=== PATIENT | male | born 1970 ===

== ENCOUNTER 2016-06-16 16:16 | Outpatient (CLI) | payer BC | END 2016-06-16 16:17 | disposition home or self-care (01) | LOC: LABHHL 16:16 | PROVIDERS: ATTEND Internal Medicine Gastroenterology | DX: K30 Functional dyspepsia (principal); R63.4 Abnormal weight loss; R11.2 Nausea with vomiting, unspecified; R85.89 Other abnormal findings in specimens from digestive organs and abdominal cavity | CPT/HCPCS: 88305; 88312; 88342 ==